=== PATIENT | male | born 1975 | race Caucasian/White ===

== ENCOUNTER 2017-10-29 16:47 | Emergency (ER) | payer OTHER ==
[2017-10-29] MEDS: SOD CHLORIDE 0.9% 500 ML IV (17:40)
[2017-10-29 18:09] LABS: ANION GAP 19 (8-16); BLOOD UREA NITROGEN 13 mg/dl (7-20); CALCIUM 8.6 mg/dl (8.4-10.2); CARBON DIOXIDE 19 mmol/L (21-31); CHLORIDE 111 mmol/L (97-110); CREATININE 0.55 mg/dl (0.61-1.24); GLUCOSE 87 mg/dl (70-220); POTASSIUM 3.8 mmol/L (3.5-5.1); SODIUM 145 mmol/L (135-144)
[2017-10-29 18:14] LABS: VALPROATE 30 ug/ml (50-100)
[2017-10-29] MEDS: DIVALPROEX SPRINKLE 125 MG CAP PEG (20:02)
== END 2017-10-29 20:24 | disposition home or self-care (01) ==
LOC: E/R 16:47
DX: R56.9 Unspecified convulsions (principal); R89.2 Abnormal level of other drugs, medicaments and biological substances in specimens from other organs, systems and tissues; E87.2 Acidosis; R40.2112 Coma scale, eyes open, never, at arrival to emergency department; R40.2212 Coma scale, best verbal response, none, at arrival to emergency department; R40.2312 Coma scale, best motor response, none, at arrival to emergency department
CPT/HCPCS: 80048; 80164; 82962; 99284-25